=== PATIENT | female | born 1950 | race Caucasian/White ===

== ENCOUNTER 2023-02-21 12:07 | Day surgery (SDC) | payer MEDICARE, SELFPAY ==
[2023-02-21] VITALS (8 sets, daily range): BP systolic 111–137; BP diastolic 49–78; PULSE 60–73; RESP 15–20; TEMP 36.1–36.2; O2SAT 98–100; BMI 22.4
[2023-02-21] MEDS: LACTATED RINGERS 1,000 ML 42 ML IV (13:01)
--- NOTE | 2023-02-21 13:59 | PM.HP.1 ---
History of Present Illness History of Present Illness Date Patient Seen: 02/21/23 Time Patient Seen: 13:59 Chief complaint: Dx Colonoscopy w/poss bx Narrative: 72-year-old female was seen in my office in December to discuss hemorrhoids. Based on her description it sounds as though these are mostly internal hemorrhoids. She also is due for her screening colonoscopy her last colonoscopy was in 2008 in [place]. She has no family history of colon cancer and no other suspicious or concerning symptoms. The symptoms from her hemorrhoid that bother her are mainly a sensation of bulging which then needs to be replaced manually after bowel movement. She does state that she takes a fiber supplement once daily and has regular easy bowel movements once a day. She denies any pain or bleeding from hemorrhoid any other symptoms besides feeling mass. [facility] Medical History Atrial septal defect Broken ankle History of broken leg Social History marital status: unmarried,single household members: friend(s) lives independently: Yes housing: apartment occupational status: previously employed Smoking Status: Never smoker alcohol intake: never substance use type: does not use Meds Home Medications and Allergies Home Medications Medication Instructions Recorded Confirmed Type cyclobenzaprine 10 mg tablet 10 mg PO PRN PRN Muscle Spasm 12/17/22 02/21/23 History lorazepam 0.5 mg tablet 0.5 mg PO PRN PRN Anxiety 12/17/22 02/21/23 History Allergies Allergy/AdvReac Type Severity Reaction Status Date / Time No Known Drug Allergies Allergy Verified 02/21/23 12:33 Exam Vital Signs (past 8 hours): - 02/21/23 12:35 Temperature 97.2 F L Pulse Rate 73 Respiratory Rate 16 Blood Pressure 126/68 Pulse Oximetry 100 Oxygen Delivery Method Room Air Oxygen Delivery Method Room Air Const General: cooperative, healthy appearing and comfortable Nutritional Appearance: average body habitus, well nourished and thin Orientation: alert, awake and oriented x3 HENMT Head: normal to inspection Eyes General: appearance normal, both eyes and all related structures Resp Effort & Inspection: normal respiratory effort and able to speak in complete sentences GI Palpation: soft and No tender Assessment & Plan Assessment and plan (1) Internal prolapsed hemorrhoids: Status: Acute (2) Colon cancer screening: Status: Acute Plan Presents today for screening colonoscopy I discussed the risks benefits and alternatives including but not limited to perforation of the colon and an incomplete exam she fully understands these risks and would like to proceed. In addition we are going to do a internal hemorrhoid banding the time of the colonoscopy. I discussed with her the process the banding and expectations for postoperative rare but serious risks include pelvic sepsis bleeding or pain requiring removal of the band.
--- NOTE | 2023-02-21 15:38 | P.OP.COLON_ITS ---
Operative Date/Time/Diagnoses Date of procedure: 02/21/23 Time of procedure: 15:38 Pre-op diagnosis: Internal hemorrhoid with prolapse requiring manual reduction. Colon cancer screening no family history. Procedure & Clinicians Study performed: Colonoscopy and internal hemorrhoid banding Same procedure as scheduled: Yes Indications: 1.Screening and 2. symptomatic grade 3 internal hemorrhoid Surgeon: Daija Benjamin Procedure Notes Procedure in detail: Patient was taken to the endoscopy suite and placed in a left lateral decubitus position. A time-out was performed. With the help of anesthesiologist conscious sedation was induced and monitored throughout the case. A digital rectal exam was performed, the rectal tone was loose, no external hemorrhoids were observed, there were no masses or strictures. The colonoscope was introduced into the anal canal and advanced through to the cecum. The sigmoid colon was very difficult to traverse, with pressure on the abdomen large sigmoid loop was held allowing us to progress to the cecum. A photograph of the appendiceal orifice was obtained. The bowel prep was excellent [place] bowel prep score of 3. The scope was then withdrawn for a total of 12 minutes and no polyps were seen. The scope was then retroflexed and a photograph of the internal hemorrhoidal piles was obtained. There was 1 in particular that was quite large. Next the colonoscope was switched out for the rigid anoscope and the large internal hemorrhoid pile that had been photographed was located in the right posterior position. Next a band was placed right above the bulging area above the dentate line. A 2nd band was placed a little more anteriorly to this since there was some bulging of the right anterior pile. Both of the bands were well placed and patient tolerated the procedure well and went in good condition to the postoperative care unit Findings: internal hemorrhoids Specimen(s): none sent Complications: none Post-procedure Recommendations: Colonoscopy in 10 years Plan for aftercare: Instructions for hemorrhoid banding are provided preoperatively if she is any questions or concerns she may see me in the office or schedule a phone call no routine follow-up is required. I do recommend increasing her fiber supplementation to twice daily for the next 2 weeks at least.
[2023-02-21] MEDS: HYDROMORPHONE 2 MG INJ (15:50)
[2023-02-21] MEDS: HYDROMORPHONE 0.5 MG INJ IV (15:59)
== END 2023-02-21 16:45 | disposition home or self-care (01) ==
PROVIDERS: PCP Nurse Practitioner Family; Referring Provider Surgery; Visit Provider Surgery
PROC: 0DJD8ZZ Inspection of Lower Intestinal Tract, Via Natural or Artificial Opening Endoscopic (ICD-10-PCS; CPT 45378; principal; 2023-02-21 13:30)
DX: Z12.11 Encounter for screening for malignant neoplasm of colon (principal); K64.8 Other hemorrhoids
CPT/HCPCS: 45398; J1170; J2250; J2704; J3010